=== PATIENT | female | born 1980 ===

== ENCOUNTER 2016-12-26 07:26 | Inpatient (IN) | payer MEDICAID ==
[2016-12-26] MEDS ORDERED: OXYTOCIN 10 UNITS/ML VIAL ONE (07:42)
[2016-12-26] MEDS ORDERED: IV START KIT ONE (07:42)
[2016-12-26] MEDS ORDERED: PUMP TUBING ONE ×2 (07:43→18:30)
[2016-12-26] MEDS ORDERED: LACTATED RINGERS 1,000 ML ONE (07:43)
[2016-12-26] MEDS ORDERED: LIDOCAINE Viscous 2% 15 ML UDCUP ONE (07:43)
[2016-12-26] MEDS ORDERED: LIDOCAINE 1% (PRES FREE) 30 ML VIAL ONE (07:43)
[2016-12-26] MEDS ORDERED: MINERAL OIL 25 ML BOT ONE (07:43)
[2016-12-26] MEDS ORDERED: SODIUM CHLORIDE 0.9% FLUSH 10 ML ONE (07:44)
[2016-12-26] MEDS ORDERED: OXYTOCIN IN NS 500 ML IV ONE (07:44)
[2016-12-26] MEDS ORDERED: OXYTOCIN IN NS 334 ML IV PRN (08:12)
--- NOTE | 2016-12-26 08:12 | PDOC36 ---
Provider Note Subject: cc: Admission H&P HPI: 36 y.o. year old SHEA 12/27/2016, by Ultrasound at 39w6d. Presents for IOL for thrombocytopenia and AMA status. REVIEW OF SYSTEMS GENERAL: No fever or headache EYES: No double or blurry vision. CARDIOVASCULAR: No chest pain. RESPIRATORY: No severe shortness of breath or cough. GASTROINTESTINAL: No nausea or vomiting or right upper quadrant pain. PSYCHIATRIC: No anxiety or depression. PROBLEMS Patient Active Problem List Diagnosis Date Noted Genital varices during in third trimester 12/23/2016 High-risk 10/02/2016 Thrombocytopenia affecting , antepartum (HCC) 07/08/2016 Supervision of normal 07/05/2016 AMA (advanced maternal age) multigravida 35+ 07/05/2016 OB HISTORY #: 1, Date: 07/27/06, Sex: Female, Weight: 2.948 kg (6 lb 8 oz), GA: 40w0d, Delivery: Vaginal, Spontaneous Delivery, Apgar1: None, Apgar5: None, Living: Yes , Comments: [facility], [facility] DEPT #: 2, Date: 06/13/09, Sex: Female, Weight: 3.062 kg (6 lb 12 oz), GA: 40w0d, Delivery: Vaginal, Spontaneous Delivery, Apgar1: None, Apgar5: None, Living: Yes , Comments: wt missing from record of delivery, Dr. Medrano also present #: 3, Date: 06/06/11, Sex: Female, Weight: 3.515 kg (7 lb 12 oz), GA: 41w0d, Delivery: Vaginal, Spontaneous Delivery, Apgar1: 9, Apgar5: 9, Living: Yes, Comments: 9/9. Pit augmentation #: 4, Current Dating: Dating Summary Working SHEA: 12/27/16 set by Maribel Meza ARNP on 07/19/16 based on Ultrasound on 07/17/16 Based On SHEA GA Dif Comments GA Cyc Lut BC Entered By Date Last Menstrual Period on 03/31/16 (Exact Date) 01/05/17 -1w2d Maribel Meza ARNP 07/19/16 Ultrasound on 07/17/16 12/27/16 Working changes EDC, girl, no survey, placenta anterior w/o previa, rescan 6-8 wks for growth and survey 16w5d Maribel eMza, [facility] 07/19/16 Ultrasound on 09/04/16 12/28/16 -1d c/w first us. Girl. Normal survey and fluid. Ant grade 1 placenta, no previa. 23w4d Elana Medrano MD 09/04/16 Alternate SHEA Entry 12/26/16 +1d Date entered prior to episode creation Swapna Laureano 07/01/16 PSH No past surgical history SOC HX reports that she has never smoked. She has never used smokeless tobacco. She reports that she does not drink alcohol or use illicit drugs. ALL Allergies Allergen Reactions Food Food Rxn:STOMACH\\GI UPSET; Note:SHRIMP; Type:Miscellaneous; Dt:04/12/2011; MEDICATIONS Current outpatient prescriptions: calcium carbonate 1250 MG capsule, Take 1 capsule by mouth daily., Disp: , Rfl: IRON PO, Take 1 tablet by mouth daily., Disp: , Rfl: Vit-Fe Fumarate-FA ( PLUS) 27-1 MG tablet, Take 1 tablet by mouth daily., Disp: 100 each, Rfl: 3 PHYSICAL EXAMINATION VITAL SIGNS: T98.2 BP 108/68 P 72 R 16 Estimated body mass index is 30.46 kg/(m^2) as calculated from the following: Height as of 12/23/16: 1.59 m (5' 2.6"). Weight as of 12/23/16: 77 kg (169 lb 12.1 oz). Total weight gain is 16.672 kg (36 lb 12.1 oz) FHT: 135 baseline, mod va, + accels, no decel Ulen: Intermittent SVE: 2/60/-3, mid, soft GENERAL: No distress CARDIOVASCULAR: Regular rate and rhythm, no murmur RESPIRATORY: Clear to auscultation bilaterally, respiratory effort is nonlabored at rest. GASTROINTESTINAL: Gravid no fundal tenderness, vertex leopolds LABS & STUDIES A+ Antibody- Rubella Immune Hep B- HIV- GC/Chlamydia- Trep- Hgb 12.2 GBS neg ASSESSMENT 36 y.o. year old SHEA 12/27/2016, by Ultrasound at 39w6d who presents for IOL for h/o thrombocytopena and AMA status. PLAN Labor- Favorable cervical exam. Start pitocin and perform AROM when possible. Anticipate GBS neg RH + Thrombocytopena- Seen by MFM. LIkely gestational thrombocytopenia. Will repeat CBC to eval stability of plts. AMA FWB- category 1 Pain- natural
[2016-12-26] MEDS: LACTATED RINGERS 1,000 ML IV SCH ×2 (08:17→19:42)
[2016-12-26 08:43] VITALS: BMI 29.0
[2016-12-26 09:07] LABS: HEMATOCRIT 35.5 % (37.0-47.0); HEMOGLOBIN 12.3 gm/l (12.0-16.0); MEAN CELL VOLUME 97.5 fl (81.0-99.0); MEAN CORPUSCULAR HEMOGLOBIN 33.8 pg (27.0-31.0); MEAN CORPUSCULAR HGB CONC 34.6 g/dl (33.0-37.0); RED CELL DISTRIBUTION WIDTH 12.5 % (11.5-14.5)
[2016-12-26] MEDS: OXYTOCIN IN NS 500 ML IV PRN ×10 (09:21→16:26)
--- NOTE | 2016-12-26 20:34 | PDOC36 ---
Provider Note Subject: S: In last hour now with painful contractions. Has to stop when they come on. O: T 36.5 BP 125/67 P 65 CE: 6/80/-2 AROM performed with presentation in trans position FHT: 145's baseline, mod jessica, + accels- cat 1 Ctx q2-3 min Pit at 13 ASSESSMENT 36 y.o. year old SHEA 12/27/2016, by Ultrasound at 39w6d who presents for IOL for h/o thrombocytopena and AMA status. PLAN Labor- Continue with pitocin. Just entered active phase. AROM performed. Anticipate GBS neg RH + Thrombocytopena- Seen by MFM. LIkely gestational thrombocytopenia. Repeat plts at 99 and stable. Consider repeat is prolonged IOL. AMA FWB- category 1 Pain- natural
[2016-12-26] MEDS ORDERED: FENTANYL 100 MCG/2 ML VIAL IV ONE (22:14)
--- NOTE | 2016-12-26 22:55 | PCMDEL ---
Delivery Note - Labor 1st stage (hr/min):: 5 hours 30 min 2nd stage (hr/min):: 6 min 3rd stage (hr/min):: 3 min Total (hr/min):: 6 hours Pushed (hr/min):: 6 min - Delivery Delivery (Date): 12/26/16 Delivery (Time): 22:39 Gender: Male Presentation: Cephalic Position: OA Umbilical Cord: 3 Vessel Delayed Cord Clamping:: < 1 min 1 Minute Total: 7 5 Minute Total: 8 Placenta:: intact EBL:: 100 Comments:: Patient admitted for IOL with favorable cervix for thrombocytopena and AMA status. Pitocin started and patient with initial slow progression to active labor. AROM performed then quickly progressed on labor curve. FM category I throughout. Delivery with stunned infant. Good tone on maternal chest but cord cut around 30 seconds to assist with respiratory effort. Quickly responded with simple tactile stim and drying. Active third stage with fundal massage and pitocin.
[2016-12-26] MEDS ORDERED: DOCUSATE SODIUM 100 MG CAPSULE PO PRN (22:57)
[2016-12-26] MEDS ORDERED: BENZOCAINE/MENTHOL 60 APPLIC/BOT TP PRN (22:57)
[2016-12-26] MEDS ORDERED: LANOLIN 50 APPLIC/7G TUBE TP PRN (22:57)
[2016-12-26] MEDS ORDERED: HYDROCODONE/ACETAMINOPHEN 5/325MG TABLET PO PRN (22:57)
[2016-12-26] MEDS ORDERED: MAGNESIUM HYDROXIDE 30 ML UDCUP PO PRN (22:57)
[2016-12-27] MEDS: IBUPROFEN 800 MG TABLET PO PRN ×3 (01:14→16:25)
[2016-12-27 06:44] LABS: HEMATOCRIT 34.7 % (37.0-47.0); HEMOGLOBIN 12.2 gm/l (12.0-16.0)
--- NOTE | 2016-12-27 09:47 | PDOC44 ---
- Subjective Day: 1 doing well, breast feeding well Reports Pain Tolerable, Reports , Reports Lochia Light, Reports Tolerating Regular Diet - Objective Temp Pulse Resp BP Pulse Ox 97.6 F 60 12 107/62 12/27/16 09:28 12/27/16 09:28 12/27/16 09:28 12/27/16 09:28 Lab Results 12/27/16 06:10 Hgb 12.2 Hct 34.7 L Current Medications Generic Name Dose Route Start Last Admin Trade Name Freq PRN Reason Stop Dose Admin Acetaminophen/Hydrocodone Bitart 1 - 2 tab 12/26/16 22:57 [place] 5/325 PO Q4H PRN Pain (Moderate) Benzocaine/Menthol 1 applic 12/26/16 22:57 Dermoplast TP PRN PRN Patient Comfort Docusate Sodium 100 mg 12/26/16 22:57 Colace PO DAILY PRN Comfort Emollient Ointment 1 applic 12/26/16 22:57 [id number] TP PRN PRN sore nipples Ibuprofen 800 mg 12/26/16 22:57 12/27/16 09:27 Motrin PO 800 mg Q6H PRN Administration Pain (Mild) Magnesium Hydroxide 30 ml 12/26/16 22:57 Milk Of Magnesia PO BEDTIME PRN Constipation Sodium Chloride 10 ml 12/26/16 22:57 Normal Saline 10ml Flush IV PRN PRN IV Flush - Physical Exam General: Afebrile Neurological: Alert HEENT: Atraumatic Lungs: Clear to Auscultation Bilaterally Cardiovascular: Regular Rate and Rhythm Breast: Soft Fundus: Firm, At Umbilicus Abdomen: Normal Bowel Sounds Lochia: Light Extremities: Other (nt, no edema) Skin: Normal Color - Problems:Assessment/Plan (1) (normal spontaneous vaginal delivery) Status: AcuteAssessment/Plan: PPD1, doing well no concerns. plan DC home tomorrow Disposition: Anticipate DC Home Tomorrow
[2016-12-28 09:01] VITALS: BP 119/67
[2016-12-28] MEDS: IBUPROFEN 800 MG TABLET PO PRN (09:18)
--- NOTE | 2016-12-28 10:09 | PDOC39B ---
Hospital Course: ADMIT DATE: 12/26/16 DISCHARGE DATE: 12/28/16 ADMISSION DIAGNOSES: IUP at 39 6/7 weeks AMA Significant varicose veins and perineal varicosities. PROCEDURES: IOL HISTORY OF PRESENT ILLNESS: 36 year old G4 T3 L3 at 39 weeks 6 days presented for IOL for AMA status. HOSPITAL COURSE: The patient was started on pitocin augmentation. She progressed on normal labor curve when she became active. Delivered via without complications. By day of discharge the patient is ambulating, eating, voiding, and passing flatus without difficulty. Pain is controlled and lochia is appropriate. She is breast feeding well. Her perineal varicosities improved slightly. She did have some superficial right leg varicosities which were prominent and one mild tender cord posterior to right leg. No erythema or signs of infections. No signs of DVT or swelling in legs. - Physical Exam Vital Signs: Temp Pulse Resp BP Pulse Ox 98.2 F 61 18 119/67 12/28/16 02:04 12/28/16 08:55 12/28/16 08:55 12/28/16 08:55 General: Afebrile, No Acute Distress Neurological: Alert, Oriented x 4 Lungs: Clear to Auscultation Bilaterally Cardiovascular: Regular Rate and Rhythm Fundus: Firm, Midline Extremities: Full ROM, Other (Right posterior skin of leg with small nodule. LIkely varicosity. NO erythema. No warmth. NO further swelling.), No Edema Skin: Normal Color, Warm, Dry, Intact, No Rash - Discharge Diagnosis (1) (normal spontaneous vaginal delivery) Status: AcuteAssessment/Plan: PPD2, doing well no concerns. d/c today (2) Varicose vein leg preg-unsp Status: AcuteAssessment/Plan: Reassuring exam. Discussed TOD pagan with PCP. - Discharge Plan Condition: Good Disposition: Home Prescriptions: Ibuprofen [IBUPROFEN 800 MG TABLET (SHF)] 800 mg PO Q6H PRN #60 PRN Reason: Pain (Mild) Lanolin [LANOLIN 7 G TUBE (SHF)] 1 applic TP PRN PRN #10 PRN Reason: Sore Nipples Follow-Up: Maribel Meza FNP [Referring] - In 6 weeks
== END 2016-12-28 12:03 | disposition home or self-care (01) | DRG 775 ==
LOC: FBC 07:26 → EDSTATUS 12-30 14:41
PROVIDERS: ADMIT Family Medicine; ATTEND Family Medicine
PROC: 10E0XZZ Delivery of Products of Conception, External Approach (ICD-10-PCS; principal; 2016-12-26)
PROC: 3E033VJ Introduction of Other Hormone into Peripheral Vein, Percutaneous Approach (ICD-10-PCS; 2016-12-26)
PROC: 10907ZC Drainage of Amniotic Fluid, Therapeutic from Products of Conception, Via Natural or Artificial Opening (ICD-10-PCS; 2016-12-26)
DX: O99.12 Other diseases of the blood and blood-forming organs and certain disorders involving the immune mechanism complicating childbirth (principal); D69.6 Thrombocytopenia, unspecified; Z3A.39 39 weeks gestation of pregnancy; Z37.0 Single live birth; O09.523 Supervision of elderly multigravida, third trimester